=== PATIENT | female | born 1990 | race Caucasian/White ===

== ENCOUNTER 2018-02-06 13:17 | Emergency (ER) | payer BC, OTHER ==
[~2018-02-06] VITALS: Ht 160 cm; Wt 72.6 kg
[~2018-02-06 13:17] MED LIST: BIRTH CONTROL; FLEXERIL PO; IBUPROFEN 600600 M1 PO; IBUPROFEN 800800 MG PO; TRAMADOL 50 MG50 MG PO; ZOLOFT
[2018-02-06 13:24] VITALS: BP 123/78
[2018-02-06] MEDS ORDERED: XANAX1 MG PO (13:28)
== END 2018-02-06 14:09 | disposition home or self-care (01) ==
LOC: M.ERS 13:17
DX: S00.93XA Contusion of unspecified part of head, initial encounter (principal); Y04.8XXA Assault by other bodily force, initial encounter; Y93.89 Activity, other specified; Y92.89 Other specified places as the place of occurrence of the external cause; Y99.8 Other external cause status; Z98.890 Other specified postprocedural states; F17.210 Nicotine dependence, cigarettes, uncomplicated; Z88.0 Allergy status to penicillin; Z88.1 Allergy status to other antibiotic agents; Z88.5 Allergy status to narcotic agent

== ENCOUNTER → 2018-07-07 | Outpatient (CLI) | payer BC ==
[~2018-07-07] MED LIST changes: +XANAX1 MG PO
== END ==
LOC: M.NUC 12:45
DX: R10.9 Unspecified abdominal pain (principal)

== ENCOUNTER → 2018-10-16 | Outpatient (CLI) | payer BC | LOC: M.ULTRA 10-07 13:24 | DX: N88.8 Other specified noninflammatory disorders of cervix uteri (principal); R59.0 Localized enlarged lymph nodes; Z88.0 Allergy status to penicillin ==